=== PATIENT | female | born 1995 | race American Indian/Alaskan Native ===

== ENCOUNTER 2018-09-04 12:21 | Outpatient (CLI) | payer MEDICAID ==
[2018-09-04 12:57] VITALS: BP 113/73
[2018-09-04] MEDS ORDERED: LACTATED RINGERS 1,000 ML IV SCH (13:00)
[2018-09-04 13:26] LABS: Bilirubin,Urine NEG (Negative); Blood,Urine SM (Negative); Color,Urine Yellow (Yellow); Hyaline Casts,Urine 1 /LPF; Mucus,Urine FEW /HPF; Protein,Urine <15 mg/dL mg/dL (Negative); Urobilinogen,Urine < 2.0 mg/dL (<2.0)
[2018-09-04 13:31] LABS: Amphetamine Screen,Urine PRESUMPTIVE NEGATIVE; Benzodiazepines Screen,Urine PRESUMPTIVE NEGATIVE; Cannabinoid Screen,Urine PRESUMPTIVE NEGATIVE; Cocaine Screen,Urine PRESUMPTIVE NEGATIVE; Methadone Screen,Urine PRESUMPTIVE NEGATIVE; Opiate Screen,Urine PRESUMPTIVE NEGATIVE
--- NOTE | 2018-09-04 15:33 | Event Note ---
23yo at 39 weeks by LINDA presents to L&D complaining of contractions. Per nursing staff she was 2/50/-3. NST Category I and maribell every 3-4 minutes. The patient's care has been with a doctor at [facility]. To adequately assess progression of labor she was recommended to stay for 2hours and have her cervix rechecked. I was told the patient desires to go see her doctor and that she put on her clothes and left L&D triage without being rechecked. She had no complaints of vaginal bleeding or loss of fluid.
== END 2018-09-04 14:15 | disposition left against medical advice (07) ==
LOC: TRG 12:21
PROVIDERS: ATTEND Obstetrics & Gynecology
DX: O47.1 False labor at or after 37 completed weeks of gestation (principal); Z3A.39 39 weeks gestation of pregnancy
CPT/HCPCS: 59025; 80307; 81001